=== PATIENT | male | born 1955 | race African-American/Black ===

== ENCOUNTER 2017-09-18 08:39 | Day surgery (SDC) | payer OTHER ==
[2017-09-11 15:35] VITALS: BMI 28.1
[2017-09-18 09:06] VITALS: TEMP 98.2
[2017-09-18] MEDS ORDERED: PROPOFOL 20 ML ONE ×2 (09:37)
[2017-09-18 11:21] VITALS: BP 110/77; PULSE 65
--- NOTE | 2017-09-20 14:11 | PATH ---
Surgical Pathology Report Patient Name: CHRISTINE GILL [facility]. Rec. #: [id number] /Age/Gender: 1955 (Age: 61) / M Account: [id number] Location: [facility]-ENDOSCOPY Taken: 09/18/2017 Received: 09/18/2017 Reported: 09/20/2017 Physicians: Kaila Sigala M.D. Specimen(s) Received A: RIGHT COLON POLYP B: RECTAL POLYP Clinical History GI bleed Postoperative diagnosis: Right colon polyp, multiple diminutive polyps Final Diagnosis A. COLON, RIGHT, POLYP, POLYPECTOMY: TUBULAR ADENOMA. B. RECTUM, POLYP, POLYPECTOMY: HYPERPLASTIC POLYP. Electronically Signed Kaila Mcguire M.D. Gross Description A. Received in formalin, labeled "snare right colon polyp" are 2 mckeon, irregular portions of soft tissue measuring 0.4 and 0.6 cm. in greatest dimension. The specimens are submitted in toto in one cassette. B. Received in formalin, labeled "biopsy rectal polyp" are 4 mckeon, irregular portions of soft tissue ranging from 0.1-0.4 cm. in greatest dimension. The specimens are submitted in toto in one cassette. 09/19/2017 saudi09/19/2017
== END 2017-09-18 11:25 | disposition home or self-care (01) ==
LOC: FASU-ENDO 08:39
PROVIDERS: ATTEND Internal Medicine Gastroenterology
PROC: 0DBP8ZX Excision of Rectum, Via Natural or Artificial Opening Endoscopic, Diagnostic (ICD-10-PCS; 2017-09-18)
PROC: 0DBK8ZX Excision of Ascending Colon, Via Natural or Artificial Opening Endoscopic, Diagnostic (ICD-10-PCS; principal; 2017-09-18 10:00)
DX: K92.2 Gastrointestinal hemorrhage, unspecified (principal); K64.8 Other hemorrhoids; D12.2 Benign neoplasm of ascending colon; K62.1 Rectal polyp
CPT/HCPCS: 88305-TC